=== PATIENT | male | born 1955 | race Caucasian/White ===

== ENCOUNTER 2024-06-18 16:52 | Inpatient (IN) | payer MEDICARE ==
[~2024-06-18] VITALS: Ht 190.5 cm; Wt 118.4 kg
[2024-06-18] MEDS ORDERED: ELIQUIS5 M1 PO (17:45)
[2024-06-18] MEDS ORDERED: ZESTRIL2.5 MG PO (17:46)
[2024-06-18] MEDS ORDERED: POTASSIUM CHLO20 ME3 PO (17:48)
[2024-06-18] MEDS ORDERED: LASIX20 MG PO (17:48)
[2024-06-18] MEDS ORDERED: ARICEPT10 M1 PO (17:50)
[2024-06-18] MEDS ORDERED: CALCIUM 600 MG1 EAC6 PO (17:50)
[2024-06-18] MEDS ORDERED: METOPROLOL SUCC25 M2 PO (17:51)
[2024-06-18] MEDS ORDERED: JARDIANCE10 MG PO (17:53)
[2024-06-18] MEDS ORDERED: LORazepam 1 MG TAB PO PRN (17:55)
[2024-06-18] MEDS ORDERED: LORazepam 2 MG/ML VIAL IM PRN (18:00)
[2024-06-18] MEDS ORDERED: Ziprasidone Mesylate 20 MG VIAL IM PRN (18:00)
[2024-06-18] MEDS ORDERED: ACETAMINOPHEN 325 MG TAB PO PRN (18:05)
[2024-06-18] MEDS ORDERED: Magnesium Hydroxide 30 ML UDC PO PRN (18:05)
[2024-06-18] MEDS ORDERED: MG-AL HYDROXIDE/SIMETICONE 30 ML UDC PO PRN (18:05)
[2024-06-18] MEDS ORDERED: Water, Sterile 10 ML VIAL IM PRN (18:15)
[2024-06-18 18:22] VITALS: BP 161/81
[2024-06-18] MEDS ORDERED: ZOLOFT100 MG PO (18:53)
[2024-06-18] MEDS ORDERED: SEROQUEL50 MG PO (18:54)
[2024-06-18] MEDS ORDERED: BENZTROPINE ME0.5 MG PO (18:55)
[2024-06-18] MEDS ORDERED: MIDODRINE HCL5 M1 PO (18:56)
[2024-06-18] MEDS ORDERED: FLOMAX0.4 MG PO (18:56)
[2024-06-18] MEDS ORDERED: VITAMIN D350 MC2 PO (18:57)
[2024-06-18] MEDS ORDERED: FLUDROCORTISON0.1 MG PO (18:58)
[2024-06-18 20:00] VITALS: BP 129/58
[2024-06-18] MEDS ORDERED: LISINOPRIL 2.5 MG TAB PO PRN (20:50)
[2024-06-18] MEDS ORDERED: Memantine Hydrochloride 5 MG TAB PO SCH (21:00)
[2024-06-18] MEDS ORDERED: APIXABAN 5 MG TAB PO SCH (21:00)
[2024-06-18] MEDS ORDERED: Mirtazapine 15 MG TAB PO SCH (21:00)
[2024-06-18] MEDS ORDERED: CEPHALEXIN 500 MG CAP PO SCH (21:00)
[2024-06-19 06:32] LABS: BASO # 0.1 10*3/uL (0.0-0.1); BASO % 1.2 % (0.0-1.0); EOS # 0.5 10*3/uL (0.0-0.4); MEAN CORPUSCULAR HGB 31.7 pg (27.0-31.0); MEAN CORPUSCULAR HGB CONC 31.7 g/dl (33.0-37.0); MEAN PLATELET VOLUME 11.1 fl (9.6-12.3); MONO % 11.1 % (3.0-9.0); NEUT # 6.1 10*3/uL (2.3-7.9); PLATELET COUNT AUTOMATED 167 10*3/uL (130-400); RED CELL DISTRI WIDTH 13.4 % (0-14.5); WHITE BLOOD COUNT 8.9 10*3/uL (4.8-10.8)
[2024-06-19 06:40] LABS: ALKALINE PHOSPHATASE 99 U/L (46-116); BUN 11 mg/dl (9-23); CHLORIDE 102 mmol/L (98-107); CHOLESTEROL 128 mg/dL (<200); LDL CHOLESTEROL 71 mg/dL (9-159); SGPT/ALT 12 U/L (5-49); TOTAL PROTEIN 7.5 gm/dL (6.0-8.0); TRIGLYCERIDES 61 mg/dl (<150)
[2024-06-19 07:17] LABS: VITAMIN D, 25-HYDROXY 32.3 ng/mL (30-100)
[2024-06-19] MEDS ORDERED: Midodrine Hydrochloride 5 MG TAB PO SCH (07:30)
[2024-06-19 07:54] VITALS: BP 138/60
[2024-06-19 08:48] LABS: BILIRUBIN Negative (Negative); BLOOD Negative (Negative); CLARITY Clear (Clear); COLOR Yellow (Yellow); GLUCOSE 3+ (Negative); KETONE Negative (Negative); LEUKO ESTERASE Negative (Negative); NITRITE Negative (Negative)
[2024-06-19] MEDS ORDERED: QUETIAPINE FUMARATE 50 MG TAB PO SCH (09:00)
[2024-06-19] MEDS ORDERED: METOPROLOL SUCCINATE XR 25 MG TAB PO SCH (09:00)
[2024-06-19] MEDS ORDERED: CALCIUM CARBONATE/VITAMIN D3 500 MG/200 IU TABLET PO SCH (09:00)
[2024-06-19] MEDS ORDERED: EMPAGLIFLOZIN 10 MG TABLET PO SCH (09:00)
[2024-06-19] MEDS ORDERED: Tamsulosin Hydrochloride 0.4 MG CAP PO SCH (09:00)
[2024-06-19] MEDS ORDERED: Rivastigmine Tartrate 4.6 MG/24 HR PATCH T SCH (09:00)
[2024-06-19] MEDS ORDERED: Nicotine 21 MG PATCH T SCH (09:00)
[2024-06-19] MEDS ORDERED: Cholecalciferol 2,000 UNIT TABLET (50 MCG) PO SCH (09:00)
[2024-06-19] MEDS ORDERED: FUROSEMIDE 20 MG TAB PO SCH (09:00)
[2024-06-19] MEDS ORDERED: POTASSIUM CHLORIDE 20 MEQ TAB PO SCH (09:00)
[2024-06-19] MEDS ORDERED: Menthol/Zinc Oxide 4 GM THIN T PRN (11:35)
[2024-06-19 20:00] VITALS: BP 113/58
[2024-06-19] MEDS ORDERED: Menthol/Zinc Oxide 4 GM THIN T SCH (22:00)
[2024-06-20 08:00] VITALS: BP 163/81
[2024-06-20 20:00] VITALS: BP 99/76
[2024-06-20] MEDS ORDERED: QUETIAPINE FUMARATE 100 MG TAB PO SCH (21:00)
[2024-06-21 07:38] VITALS: BP 162/79
[2024-06-21] MEDS ORDERED: Rivastigmine Tartrate 9.5 MG/24 HR PATCH T SCH (09:00)
[2024-06-21 20:01] VITALS: BP 147/75
[2024-06-21] MEDS ORDERED: TEMAZEPAM 15 MG CAP PO SCH (21:00)
[2024-06-22 08:34] VITALS: BP 137/71
[2024-06-22] MEDS ORDERED: QUETIAPINE FUMARATE 50 MG TAB PO SCH (10:30)
[2024-06-22 20:00] VITALS: BP 117/56
[2024-06-23 08:00] VITALS: BP 140/62
[2024-06-23] MEDS ORDERED: Memantine Hydrochloride 5 MG TAB PO SCH (09:00)
[2024-06-23 20:00] VITALS: BP 136/68
[2024-06-24 08:02] VITALS: BP 122/54
[2024-06-24] MEDS ORDERED: LIDOCAINE 1 EA PATCH T SCH (11:34)
[2024-06-24 20:00] VITALS: BP 109/60
[2024-06-24] MEDS ORDERED: QUETIAPINE FUMARATE 100 MG TAB PO SCH (21:00)
[2024-06-25 06:22] VITALS: BP 121/61
[2024-06-25] MEDS ORDERED: LIDOCAINE 1 EA PATCH T SCH (09:00)
[2024-06-25] MEDS ORDERED: DIVALPROEX (DR) 500 MG TAB PO ONE (10:00)
[2024-06-25] MEDS ORDERED: DIVALPROEX (DR) 500 MG TAB PO SCH (13:00)
[2024-06-25 20:00] VITALS: BP 124/59
[2024-06-25] MEDS ORDERED: Memantine Hydrochloride 5 MG TAB PO SCH (21:00)
[2024-06-25] MEDS ORDERED: QUETIAPINE FUMARATE 300 MG TAB PO SCH (21:00)
[2024-06-26 07:51] VITALS: BP 129/89
[2024-06-26] MEDS ORDERED: Memantine Hydrochloride 10 MG TAB PO SCH (09:00)
[2024-06-26 20:00] VITALS: BP 116/56
[2024-06-27 06:43] LABS: BASO # 0.1 10*3/uL (0.0-0.1); BASO % 0.7 % (0.0-1.0); EOS # 0.4 10*3/uL (0.0-0.4); HEMATOCRIT 44.1 % (42.0-52.0); MEAN CELL VOLUME 99.5 fl (80.0-94.0); MEAN CORPUSCULAR HGB 31.6 pg (27.0-31.0); MEAN CORPUSCULAR HGB CONC 31.7 g/dl (33.0-37.0); MEAN PLATELET VOLUME 10.8 fl (9.6-12.3); MONO # 0.9 10*3/uL (0.1-1.0); MONO % 12.5 % (3.0-9.0); NEUT # 4.7 10*3/uL (2.3-7.9); NEUT % 63.7 % (47.0-73.0); PLATELET COUNT AUTOMATED 141 10*3/uL (130-400); RED BLOOD COUNT 4.43 10*6/uL (4.50-5.90); RED CELL DISTRI WIDTH 13.3 % (0-14.5); WHITE BLOOD COUNT 7.3 10*3/uL (4.8-10.8)
[2024-06-27 07:15] LABS: ALKALINE PHOSPHATASE 95 U/L (46-116); BUN 15 mg/dl (9-23); CHLORIDE 101 mmol/L (98-107); POTASSIUM 3.7 mmol/L (3.4-5.1); SGPT/ALT 12 U/L (5-49); TOTAL PROTEIN 7.2 gm/dL (6.0-8.0)
[2024-06-27 08:29] VITALS: BP 137/63
[2024-06-27] MEDS ORDERED: RIVASTIGMINE 13.3 MG/24 HR TDM T SCH (09:00)
[2024-06-27] MEDS ORDERED: LORazepam 2 MG/ML VIAL IM PRN (17:15)
[2024-06-27] MEDS ORDERED: LORazepam 1 MG TAB PO PRN (17:15)
[2024-06-27 20:00] VITALS: BP 128/58
[2024-06-27] MEDS ORDERED: QUETIAPINE FUMARATE 400 MG TAB PO SCH (21:00)
[2024-06-27] MEDS ORDERED: Memantine Hydrochloride 10 MG TAB PO SCH (21:00)
[2024-06-27] MEDS ORDERED: RAMELTEON 8 MG TAB PO SCH (21:00)
[2024-06-28 07:50] VITALS: BP 131/77
[2024-06-28 20:00] VITALS: BP 108/77
[2024-06-28] MEDS ORDERED: QUETIAPINE FUMARATE 100 MG TAB PO SCH (21:00)
[2024-06-29 08:33] VITALS: BP 104/48
[2024-06-29 20:00] VITALS: BP 138/64
[2024-06-29] MEDS ORDERED: QUETIAPINE FUMARATE 50 MG TAB PO SCH (21:00)
[2024-06-30 08:00] VITALS: BP 140/83
[2024-06-30 20:00] VITALS: BP 136/71
[2024-06-30] MEDS ORDERED: QUETIAPINE FUMARATE 300 MG TAB PO SCH (21:00)
[2024-07-01 08:48] VITALS: BP 153/67
[2024-07-01] MEDS ORDERED: QUETIAPINE FUM300 M1 PO (10:03)
[2024-07-01] MEDS ORDERED: RAMELTEON8 MG PO (10:03)
[2024-07-01] MEDS ORDERED: MEMANTINE HCL10 MG PO (10:03)
[2024-07-01] MEDS ORDERED: RIVASTIGMINE1 EAC2 T (10:03)
[2024-07-01] MEDS ORDERED: VITAMIN D350 MCG PO (10:03)
[2024-07-01] MEDS ORDERED: MIRTAZAPINE15 M2 PO (10:03)
[2024-07-01] MEDS ORDERED: DIVALPROEX SOD500 MG PO (10:03)
== END 2024-07-01 18:15 | disposition home or self-care (01) | DRG 885 ==
LOC: 3N 16:52 → EDBD 18:13 → 3N 07-01 18:15
PROVIDERS: Nurse Practitioner; ADMIT Psychiatry & Neurology Psychiatry; ATTEND Psychiatry & Neurology Psychiatry
PROC: GZHZZZZ Group Psychotherapy (ICD-10-PCS; principal; 2024-06-19)
PROC: GZ51ZZZ Individual Psychotherapy, Behavioral (ICD-10-PCS; 2024-06-19)
DX: F31.60 Bipolar disorder, current episode mixed, unspecified (principal); L03.115 Cellulitis of right lower limb; I50.22 Chronic systolic (congestive) heart failure; F31.9 Bipolar disorder, unspecified; R73.9 Hyperglycemia, unspecified; F41.9 Anxiety disorder, unspecified; I25.10 Atherosclerotic heart disease of native coronary artery without angina pectoris; E78.2 Mixed hyperlipidemia; J45.20 Mild intermittent asthma, uncomplicated; I48.0 Paroxysmal atrial fibrillation; Z95.0 Presence of cardiac pacemaker; F39 Unspecified mood [affective] disorder; G30.9 Alzheimer's disease, unspecified; F02.80 Dementia in other diseases classified elsewhere, unspecified severity, without behavioral disturbance, psychotic disturbance, mood disturbance, and anxiety; Z83.6 Family history of other diseases of the respiratory system; Z83.3 Family history of diabetes mellitus; Z79.899 Other long term (current) drug therapy